=== PATIENT | male | born 1955 | race Caucasian/White ===

== ENCOUNTER 2017-01-04 08:15 | Observation (INO) | payer MEDICAID ==
--- NOTE | 2017-01-03 17:14 | GHP ---
[f rep st] PREOP HISTORY AND PHYSICAL ADMISSION DIAGNOSIS: Elevated PSA with urinary obstruction. HISTORY OF PRESENT ILLNESS: This is a 62-year-old gentleman who is referred because of an elevated PSA of 4.4. No history of biopsies. He has had no family history of prostate cancer. He had urody namics, cystoscopy, and ultrasound that all revealed he had a large intravesical prostate lobe with hypervascularity and obstruction. He is admitted for a TURP. Indication, complications, and option s have been discussed. Written and verbal consent were obtained. He is admitted for the above proc edure. PAST MEDICAL HISTORY: History of asthma and gastric reflux. PAST SURGICAL HISTORY: Appendectomy. MEDICATIONS: Finasteride. ALLERGIES: Sulfa. FAMILY HISTORY: Negative. SOCIAL HISTORY: Moderate alcohol consumption. Does smoke. . Denies illicit substance use . REVIEW OF SYSTEMS: Negative cardiac, respiratory, GI, endocrine, hemolymphatic, and allergic. PHYSICAL EXAM: VITAL SIGNS: Stable. CHEST: Clear. HEART: Regular rate and rhythm. ABDOMEN: N ormal. No organomegaly, rebound, or guarding. EXTREMITIES: Lower extremities are normal. RECTAL: Exam shows a benign appearing 50 g prostate. At the present time, he is admitted for TUR of the prostate. Indication, complications, and options discussed, and he is to undergo the above procedure. /[id number]/MODL
[~2017-01-04 08:15] MED LIST: D5W LR 1,000 ML IV ONE; ceFAZolin 2 GM/DEXTROSE 100 ML IV ONE
[2017-01-04] MEDS ORDERED: LIDOCAINE 2% JELLY 20 ML (UROJECT) ONE (08:27)
[2017-01-04] MEDS ORDERED: LIDOCAINE 1% 2 ML INJ ONE ×2 (09:40→10:12)
[2017-01-04] MEDS ORDERED: CEFAZOLIN 2 GM/DEXTROSE/100 ML BAG IV ONE ×2 (09:40→09:55)
[2017-01-04] MEDS ORDERED: LR 1,000 ML IV ONE (10:15)
[2017-01-04] MEDS ORDERED: LIDOCAINE 1% 5 ML SDV ID PRN (10:15)
[2017-01-04] MEDS ORDERED: MIDAZOLAM 2 MG/2 ML VIAL ONE (10:57)
[2017-01-04] MEDS ORDERED: fentaNYL 250 MCG/5 ML INJ ONE (11:00)
[2017-01-04] MEDS ORDERED: ROCURONIUM 50 MG/5 ML VIAL ONE (11:00)
[2017-01-04] MEDS ORDERED: PROPOFOL 200 MG/20 ML VIAL ONE (11:00)
[2017-01-04] MEDS ORDERED: DEXAMETHASONE 4 MG/ML VIAL ONE (11:00)
[2017-01-04] MEDS ORDERED: RANITIDINE 50 MG/2 ML VIAL ONE (11:00)
[2017-01-04] MEDS ORDERED: ONDANSETRON 4 MG/2 ML VIAL ONE (11:49)
[2017-01-04] MEDS ORDERED: NEOSTIGMINE METHYLSULFATE 5 MG/5 ML SYR ONE (11:59)
[2017-01-04] MEDS ORDERED: GLYCOPYRROLATE 0.2 MG/1 ML VIAL ONE (11:59)
[2017-01-04] MEDS ORDERED: HYDROCODONE/APAP 5/325 TAB PO PRN (12:22)
[2017-01-04] MEDS ORDERED: OPIUM/BELLADONNA ALKALO SUPP PR PRN (12:22)
--- NOTE | 2017-01-04 12:25 | POSTOPPROG ---
Post Op Note Date of Operation: 01/04/17 Surgeon: Mayo Villafeurte Anesthesiologist: pamela Anesthesia: GET(General Endotracheal) Pre-op Diagnosis: bph wiht retention Post-op Diagnosis: same Procedure: turp Inf/Abcess present in the surg proc area at time of surgery?: No Specimen(s): sent--dictated
--- NOTE | 2017-01-04 12:42 | GOP ---
[f rep st] OPERATIVE REPORT DATE OF OPERATION: 01/04/2017 SURGEON: Mayo Villafuerte MD STEAM TABLE ATTENDANT: None. ANESTHESIA: Humza provided general anesthesia. PREOPERATIVE DIAGNOSIS: 1. Benign prostatic hypertrophy. 2. Urinary retention. POSTOPERATIVE DIAGNOSIS: 1. Benign prostatic hypertrophy. 2. Urinary retention. PROCEDURE PERFORMED: Transurethral resection/excision of prostate. FINDINGS: ESTIMATED BLOOD LOSS: Less than 100 mL. DESCRIPTION OF PROCEDURE: After appropriate general anesthesia, time-out, prep and drape, the scope was passed into the bladder. He had an intravesical lobe of the prostate, and I took down the ante rior lobe, the right middle lobe, and right portion of the posterior lobe. Intravesical lobe was ex cised, and the left lateral lobe and left portion of the posterior lobe were resected. At the end o f the procedure, his bladder was Ellik'd free of all chips and clots. Visualization revealed no res idual chips or clots. Ureteral orifices were preserved. External sphincter approximated in the mid line symmetrically, Verumontanum preserved, and ureteral orifices in their normal position. Uro-Jet placed in the urethra. The 3 way Ladd catheter passed 60 cc, balloon inflated, traction placed, a nd irrigated clear. Specimen sent to pathology. /[id number]/MODL
[2017-01-04] MEDS: D5W LR 1,000 ML IV SCH ×2 (15:44→23:20)
[2017-01-05 04:53] VITALS: RESP 16
[2017-01-05] MEDS: D5W LR 1,000 ML IV SCH (06:29)
[2017-01-05] MEDS ORDERED: Herbals/Supplements -Info Only PO SCH (09:00)
[2017-01-05] MEDS ORDERED: FINASTERIDE 5 MG TAB PO SCH (09:00)
[2017-01-05 12:12] VITALS: BP 103/67; PULSE 64; TEMP 98.7; O2SAT 94
--- NOTE | 2017-01-05 17:19 | SOAPPROG ---
SOAP Progress Note Assessment/Plan: Assessment: Benign prostatic hypertrophy with urinary retention Acute cath out, path pending and voiding Plan: DC home 01/05/17 17:18 Subjective: post op voiding ok Objective: Vital Signs Temp Pulse Resp BP Pulse Ox 37.1 C 64 16 103/67 94 01/05/17 12:11 01/05/17 12:11 01/05/17 12:11 01/05/17 12:11 01/05/17 12:11 01/04/17 01/05/17 01/06/17 05:59 05:59 05:59 Intake Total 3683 350 Output Total 2950 Balance 733 350 Physical Exam - Physical Exam General Appearance: alert Respiratory: No respiratory distress Abdomen: soft Neuro/Psych: alert, oriented x 3 ICD10 Worksheet Patient Problems: Problems Problem Status Onset Benign prostatic hypertrophy with urinary retention Acute - ICD10 Problem Qualifiers (1) Benign prostatic hypertrophy with urinary retention
== END 2017-01-05 15:15 | disposition home or self-care (01) ==
LOC: F3E 09:31 → F1N 13:40
PROVIDERS: ADMIT Specialist; ATTEND Specialist
PROC: 0VT08ZZ Resection of Prostate, Via Natural or Artificial Opening Endoscopic (ICD-10-PCS; principal; 2017-01-04 11:00)
DX: N40.1 Benign prostatic hyperplasia with lower urinary tract symptoms (principal); R33.9 Retention of urine, unspecified
CPT/HCPCS: J0690; J1100; J2250; J2405; J2704; J2710; J2780; J3010